=== PATIENT | male | born 1940 | race Caucasian/White ===

== ENCOUNTER 2017-02-28 14:21 | Observation (INO) | payer MEDICARE ==
[~2017-02-28] VITALS: Ht 165.1 cm; Wt 71.9 kg
[~2017-02-28 14:21] MED LIST: AMIODARONE200 MG PO; AMLO5TAB PO; ANTIVERT GENERI25 MG PO; ASPIRIN 81MG TA81 MG PO; B COMPLEX1 EACH PO; BYSTOLIC5 MG PO; CO Q10200 MG PO; FISH OIL1000 MG PO; GABAPENTIN 600600 MG PO; GABAPENTIN100 M1 PO; GABAPENTIN300 MG PO; KEFLEX 500MG.500 MG PO; LEVOTHYROXINE0.1 MG PO; LIPITOR10 MG PO; LIPITOR20 MG PO; LISINOPRIL 5MG T5 MG PO; LOPRESSOR 50 MG50 MG PO; MEDROL 4MG. DOSE4 MG PO; MELOXICAM15 MG PO; METOPROLOL100 MG PO; NORCO 325 MG-51 TAB PO; OMNICEF 300 MG300 MG PO; PROTEGRA ANTIOX1 SGL PO; SINGULAIR 10 MG10 MG PO; SYMBICORT1 AE1 IH; SYNTHROID 0.0.075 MG PO; TOPROL XL50 MG PO; VENLAFAXINE 337.5 MG PO; VITAMIN D31000 IU PO; XANAX 0.5MG TA0.5 MG PO
--- OUTSIDE RECORDS SUMMARY | 2017-02-28 14:55 | External Medical Summary Rpt ---
Author Author [employer] Organization [employer] Address Unknown Phone Unavailable Purpose Continuity of Care Document - through 2016
--- OUTSIDE RECORDS SUMMARY | 2017-02-28 14:55 | External Medical Summary Rpt ---
Author Author [employer] Holley, [employer] Organization [employer] Address Unknown Phone Unavailable
--- OUTSIDE RECORDS SUMMARY | 2017-02-28 14:55 | External Medical Summary Rpt ---
Author Author , Organization [employer] Address Unknown Phone Unavailable Purpose Continuity of Care Document - through 2016
--- OUTSIDE RECORDS SUMMARY | 2017-02-28 14:55 | External Medical Summary Rpt ---
Author Author , Organization [employer] Address Unknown Phone Unavailable Purpose Continuity of Care Document - 02-05-2003 through 2016 Immunization Name Date Route CVX Reacti Commen Provid Is Given on t er Refuse d Zoster Histor ALEXAN No 2017 ical ALAN Inform ALLISO ation N - Source Unspec ified Influe Histor LEXCLI No nza 2014 ical N Quad Inform Inj ation - Source Unspec ified PPV23 Histor LEXCLI No 2009 ical N Inform ation - Source Unspec ified Td 02-05- Subcut 9 Histor H201 No (adult 2002 aneous ical ), Inform adsorb ation ed - Source Unspec ified
--- NOTE | 2017-02-28 15:49 | RADIOLOGY REPORT PS360 ---
CT HEAD W/O CONTRAST HISTORY: VERTIGO ORDERING PHYSICIAN: Nishant Blackwood MD PATIENT AGE: 76 years COMPARISON: [id number] TECHNIQUE: Axial images obtained without contrast. Brain and bone windows reviewed. FINDINGS: No midline shift, mass effect, intracranial hemorrhage, hydrocephalus, or extra-axial fluid collection is evident. There is generalized atrophy with mild prominence of the ventricles likely related to the underlying volume loss or dislocation. No large cerebellopontine angle masses are evident. The foramina are symmetric. The calvarium has an unremarkable appearance. No mastoid effusion. The visualized paranasal sinuses are unremarkable. IMPRESSION: 1. No acute intracranial pathology. 2. No significant change from 01/15/2014.
--- NOTE | 2017-02-28 15:56 | RADIOLOGY REPORT PS360 ---
CHEST(2 VIEWS-NOT PORTABLE) HISTORY: chest pain ORDERING PHYSICIAN: Nishant Blackwood MD PATIENT AGE: 76 years COMPARISON: 08/30/2016 FINDINGS: There has been a prior median sternotomy with a dual chamber pacemaker present in satisfactory position. Normal heart size. Chronic changes are present within the left lower lobe with chronic increased density in the left lung base. The remaining lungs are clear. No acute bony anomalies. IMPRESSION: Chronic changes in the left lower lobe. No change cardiac pacemaker. No change with no acute finding
[2017-02-28 16:02] VITALS: BP 125/77
[2017-02-28 16:43] VITALS: BP 125/77
[2017-02-28] MEDS ORDERED: XANAX 0.5MG TA0.5 MG PO (17:09)
[2017-02-28 17:13] LABS: HEMOGLOBIN 14.8 g/dL (14.1-18.0); LYMPH # 1.9 K/mm3 (0.7-4.5); LYMPH % 29.3 % (10-50)
[2017-02-28 19:59] VITALS: BP 121/80
[2017-02-28 21:00] VITALS: BP 121/80
[2017-02-28 23:31] VITALS: BP 129/75
[2017-03-01 04:24] VITALS: BP 133/88
[2017-03-01] MEDS ORDERED: FLONASE 50 MCG16 GM (07:38)
[2017-03-01] MEDS ORDERED: PREDNISONE 20MG20 MG PO (07:39)
[2017-03-01] MEDS ORDERED: [UNRECOGNIZED DRUG - OTHER] PO (07:39)
--- NOTE | 2017-03-01 07:41 | DISCHARGE SUMMARY STANDARD ---
Demographics Admit date: 02/28/17 Discharge date: 03/01/17 History of present illness History of present illness 76-year-old white male with multiple medical problems including coronary disease , chronic pacemaker placement, chronic dysrhythmia issues to has had vertigo over the past couple of days that worsened yesterday. In my office he was unable to stand on his own power, unable to do a lot of self-care activities and also complained of some substernal chest pain. He was admitted to hospital for chest pain evaluation, and also treatment of vertigo. Please see H and P scanned in chart for details. Hospital Course Hospital Course: Patient was admitted, ruled out for myocardial infarction, echocardiogram was unchanged from prior, pacemaker was noted to be functioning well on electrocardiogram monitoring. Ears treated with IV fluids and Solu-Medrol. This improved his vertigo symptoms somewhat. This morning he was doing well, eating well, able to walk around the room much better. He'll be discharged home on Flonase, prednisone and Diamox for vertigo symptoms. Follow up with me closely in 6 days. Discharge diagnoses Problem List 1. Vertigo Medications Medications: Discharge meds are as noted. Follow up Follow up in office in: 6 DAYS with: Nishant Blackwood MD at 0741
[2017-03-01 07:45] VITALS: BP 147/73
[2017-03-01 09:15] VITALS: BP 147/73
--- NOTE | 2017-03-01 09:52 | PHARMACY CLINIC NOTE ---
Patient Demographics Patient Demographics Admission date: 02/28/17 Date: 03/01/17 Time: 09 Allergies Coded Allergies: No Known Allergies (02/09/16) HEIGHT- FT: 5 IN: 5.00 K.[id number] VTE General Information Labs: Laboratory Tests 02/28 1620 Hematology Hgb (14.1 - 18.0 g/dL) 14.8 Hct (42.0 - 52.0 %) 46.3 Plt Count (142 - 424 K/mm3) 257 Disclaimer The following section includes nursing documentation that has been pulled in for pharmacy review. Patient's VTE score: 4 Patient's VTE Risk: LOW RISK Clinical trial participant? No VTE prophylaxis NQF [id number] VTE prophylaxis ordered? Yes Type of prophylaxis/treatment: JAROD at 0952
--- NOTE | 2017-03-07 09:25 | RADIOLOGY REPORT PS360 ---
PROCEDURE: 2-D M-mode and color Doppler study INDICATIONS FOR THE TEST: Chest pain COPD Heart Murmur Tobacco Smoking Palpitations Fatigue Syncope Edema HypertensionXXXDiabetes Mellitus Rheumatic Fever SOB MOREAU Obesity HyperlipidemiaX Family History HD Additional History AF CAD CABG PACEMAKER PATIENT INFORMATION HEIGHT: 65 WEIGHT:156 GENDER: Male B/P:130/80 2-D/M-MODE INTERPRETATION: 2-D MEASUREMENTS OBSERVED VALUES IN CMS Right Ventricular Dimension (RVDd) 2.6 Interventricular Septum (Thickness)(IVsd) .9 Left Ventricular Internal Dimensions(LVIDd) 5.4 Left Ventricular Posterior Wall (Thickness)(LVPWd) .9 Aortic Root 3.2 Aortic Cusp Separation 1.6 Left Atrial Dimensions (LAD) 3.2 2D 1. Left atrium is qualitatively mildly enlarged, left ventricle is normal size, there is no concentric left ventricular hypertrophy present, visually estimated ejection fraction of 50% with abnormal septal motion. 2. The right atrium is mildly enlarged, right ventricle is mildly dilated with normal contractility, there is a pacemaker lead seen in the right atrium and right ventricle. 3. The aortic valve is minimally thickened and calcified leaflet continue to display good mobility there is no aortic stenosis. 4. The mitral valve leaflets are minimally thickened, there is mild buckling of the anterior mitral leaflet without actual prolapse, there is no mitral stenosis. 5. The tricuspid valve is structurally normal. 6. The pulmonic valve is not well visualized. 7. No significant pericardial effusion noted. DOPPLER INTERROGATION: Doppler interrogation of the aortic mitral and tricuspid valvular presence of mild aortic, mild mitral and tricuspid regurgitation, tricuspid regurgitant jet velocity insufficient for calculation of the right ventricular systolic pressure, grade 1 diastolic dysfunction seen without tissue Doppler evidence of raised left atrial pressure. CONCLUSION: 1. Biatrial enlargement, normal left ventricular size, visually estimated ejection fraction 50% with abnormal septal motion, grade 1 diastolic dysfunction seen without Doppler evidence of raised left atrial pressure. 2. Mildly enlarged right ventricle with normal contractility. 3. Mild aortic, mitral and tricuspid regurgitation. 4. No significant pericardial effusion noted.
== END 2017-03-01 09:20 | disposition home or self-care (01) ==
LOC: 2ND 14:21
PROVIDERS: Internal Medicine Adolescent Medicine
DX: R42 Dizziness and giddiness (principal); I25.10 Atherosclerotic heart disease of native coronary artery without angina pectoris; Z95.0 Presence of cardiac pacemaker; R06.00 Dyspnea, unspecified
CPT/HCPCS: G0378; G0379

== ENCOUNTER 2017-03-30 11:09 | Day surgery (SDC) | payer MEDICARE ==
[~2017-03-30] VITALS: Ht 165.1 cm; Wt 70.3 kg
[~2017-03-30 11:09] MED LIST changes: +FLONASE 50 MCG16 GM; +PREDNISONE 20MG20 MG PO; +[UNRECOGNIZED DRUG - OTHER] PO
[2017-03-30 11:24] VITALS: BP 108/63
[2017-03-30 12:00] VITALS: BP 108/63
[2017-03-30 12:06] VITALS: BP 108/63
[2017-03-30 12:21] VITALS: BP 136/65
--- NOTE | 2017-03-30 12:24 | Procedure Note ---
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 He status post DRG spinal stimulator trial. He presents to our clinic today for temporary lead pull. He reports 80 percent improvement terms of his RIGHT leg and foot CRPS symptoms. He has complained of progressively getting weaker at in his legs since the similar was placed. I discussed with Dr. Paredes regarding the symptoms. We will order lumbar CT scan. Patient will follow-up with Dr. Paredes on Sunday. Objective: Patient's awake alert oriented 3. In no acute distress. Flexion extension lumbar spine somewhat guarded secondary to pain. Deep tendon reflexes upper and lower extremities normal. Motor strength upper extremities 5/5. Lower extremities 4/5. She is ambulatory with assistance by walker. However, he presents in a wheelchair today due to the long distance from the parking lot. Procedure detail: Details of procedure were explained to the patient. The patient taken to procedure room and placed in a sitting position. The consent form was signed. Noninvasive monitors placed including noninvasive blood pressure cuff as well as pulse oximeter. The tape was removed from the lumbar spine. The leads were disconnected from the battery source. The leads were pulled without incident. The insertion sites were clean and dry without redness or swelling. The area of the lumbar spine was cleansed using chlorhexidine as a cleansing solution. Band- Aids were applied. Plan and disposition: Patient follow up with Dr. Paredes on Sunday. at 1224
--- NOTE | 2017-03-30 13:55 | RADIOLOGY REPORT PS360 ---
CT LUMBAR SPINE W/O CONTRAST CLINICAL INDICATION: Low back pain radiating down the right leg BACK PAIN ORDERING PHYSICIAN: ISMAEL ZUNIGA CRNA PATIENT AGE: 77 years COMPARISON: Radiograph 01/24/[address] scan of 01/25/2010 TECHNIQUE:Axial, sagittal, and coronal images are generated and reviewed without contrast FINDINGS: There is normal alignment. There are only 4 lumbar segments... No acute fracture or dislocation is evident. L1-L2 and L2-L3 have an unremarkable appearance. L3-L4: Concentric bulging disc with facet and ligamentum flavum hypertrophic change. L4 S1: Minimal anterolisthesis of L4 on S1 of 2 mm. There is severe facet and ligamentum flavum hypertrophic change with bulging disc along with severe right-sided foraminal narrowing. There is marked bony hypertrophic change about the facets on the right at this level. 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 This was present on the previous exam and has not really changed. Severe facet hypertrophic changes present at S1-S2 with prominent bony hypertrophy and sclerosis with severe right foraminal narrowing at S1-S2 and moderate amount of calcific debris about the S1-S2 foramen on the right. There is bilateral pars defect at S1-S2 without spondylolisthesis No acute fracture or dislocation. Incidental note made of bilateral enterolithiasis with no evidence of hydronephrosis. There is mild dilatation of the abdominal aorta at the L3 level at 2.2 cm. IMPRESSION: 1. Abnormal CT of the lumbar spine has detailed above with severe spondylosis at the lumbosacral junction with severe right-sided foraminal narrowing at the lumbosacral junction and at S1-S2 secondary to the bony hypertrophic change as described above overall not significant change from 04/26/2010. 2. Bilateral nephrolithiasis
== END 2017-03-30 12:22 | disposition home or self-care (01) ==
LOC: PM 11:09
DX: G90.521 Complex regional pain syndrome I of right lower limb (principal)

== ENCOUNTER → 2017-07-04 | Outpatient (CLI) | payer MEDICARE ==
[~2017-07-04] MED LIST changes: +AUGMENTIN 875-1 EACH PO
[2017-07-04 09:48] LABS: BUN 22 mg/dL (7-18)
[2017-07-04 09:51] LABS: GFR (ESTIMATED) 42 ML/MIN (>60)
== END ==
LOC: LAB 09:22
PROVIDERS: Internal Medicine Adolescent Medicine
DX: M54.16 Radiculopathy, lumbar region (principal)

== ENCOUNTER → 2017-07-06 | Outpatient (CLI) | payer MEDICARE ==
--- NOTE | 2017-07-08 20:50 | RADIOLOGY REPORT PS360 ---
CT LUMBAR WITH CONTRAST COMPARISON: CT scan lumbar spine 03/30/2017 HISTORY: Ankle back pain TECHNIQUE: Multiple axial scans of the lumbar spine were obtained. Sagittal and coronal reformats were evaluated as well. FINDINGS: There is accentuated lordotic curvature of the lower lumbar spine. There is generalized osteopenia. Is no compression fracture. There is a transitional vertebrae at the lumbar sacral junction with partial sacralization of L5. There are markedly hypertrophic facet changes at the L4-5 level more prominent right side the left. There are mild hypertrophic facet changes at the L34 level there are defects of the pars interarticularis at the L5 S1 level which are somewhat poorly defined on today's study and were better seen on the previous CT scan lumbar spine December 2010. The markedly hypertrophic facet changes at this level somewhat obscure the pars defect. There is a mild broad-based disc bulge at the L3-4 level and there is a broad-based right paracentral disc bulge at L4-5 level. There is a sclerotic calcification of the abdominal aorta but there is no aneurysm. There are nonobstructing calculi in both kidneys which were noted previously. IMPRESSION: Prominent generalized osteopenia, transitional vertebrae at the lumbosacral junction with broad-based disc bulges at the L3-4 and 4 L4-5 levels, there is neural foraminal narrowing on the right side at the L4-5 level secondary to the combination of diffuse disc bulge and markedly hypertrophic facet changes at this level..
== END ==
LOC: RAD 12:34
DX: M54.16 Radiculopathy, lumbar region (principal)
CPT/HCPCS: Q9967

== ENCOUNTER → 2017-08-29 | Outpatient (CLI) | payer MEDICARE ==
[2017-08-29 09:33] LABS: BUN 20 mg/dL (7-18)
[2017-08-29 09:35] LABS: GFR (ESTIMATED) 49 ML/MIN (>60)
--- NOTE | 2017-09-03 10:28 | RADIOLOGY REPORT PS360 ---
CT PELVIS W/ CONTRAST CLINICAL INDICATION: Weakness, lumbosacral RADICULOPATHY at L5 and S1, lumbosacral plexopathy LUMBAR RADICULOPATHY ORDERING PHYSICIAN: Nishant Blackwood MD PATIENT AGE: 77 years TECHNIQUE: Axial images are obtained of the pelvis immediately and delayed following intravenous administration of 75 mL's of Isovue-370. Sagittal and coronal reformatted images are generated and reviewed. EXAM is compared to lumbar spine CT of 07/06/2017 FINDINGS: There is a small umbilical hernia containing fat. There is a mild amount of retained colonic feces. There is mild dilatation of the lower abdominal aorta at 2.3 cm. The urinary bladder has an unremarkable appearance. No pelvic mass or adenopathy. There are 4 lumbar vertebra with a transitional segment at S1. At the lumbosacral junction there is a spondylolytic defect on the right. 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 Has the patient had a prior sacral fracture? There is a defect through the right aspect of the sacrum probably representing congenital segmentation defect versus old injury. This defect is through the neural foraminal area at the S2-S3 region.. There is kyphotic deformity of the lower sacrum which appears chronic and does appear to represent an old fracture with 6 mm anterolisthesis of the lower sacral segment. No enhancing masses are evident. IMPRESSION: 1. 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 There are transitional segment at the lumbosacral junction which is labeled as S1. The sacrum itself shows an old fracture versus congenital segmentation of the sacrum on the right. Through the neural foramina. These findings are nonsignificant change from a CT scan of 07/06/2017 of the lumbar spine. 2. No enhancing mass of the sacrum. No enhancing lesions. 3. Old fracture of the lower sacrum/sacral coccygeal junction with anterior displacement of the distal fracture fragment and anterior angulation of the distal fracture fragment. 4. Small umbilical hernia containing fat. 5. Mild dilatation of the lower abdominal aorta at 2.3 cm
== END ==
LOC: RAD 09:12
PROVIDERS: Internal Medicine Adolescent Medicine
DX: M54.16 Radiculopathy, lumbar region (principal)
CPT/HCPCS: Q9967